=== PATIENT | male | born 1970 | race Caucasian/White ===

== ENCOUNTER 2019-10-18 18:19 | Emergency (ER) | payer OTHER ==
[~2019-10-18] VITALS: Ht 188 cm; Wt 115.0 kg
[2019-10-18] MEDS ORDERED: ONDANSETRON PF 4 MG/2 ML VIAL. ONE (18:47)
[2019-10-18] MEDS ORDERED: MORPHINE SULFATE 4 MG/ML DISP.SYRIN. IV ONE (19:00)
[2019-10-18] MEDS ORDERED: IOHEXOL 300 MG/ML 75 ML VIAL. IV ONE (19:00)
[2019-10-18] MEDS ORDERED: ONDANSETRON PF 4 MG/2 ML VIAL. IVP ONE ×2 (19:00→19:15)
--- NOTE | 2019-10-18 19:06 | PHYS DOC ---
Past History Past Medical History: Asthma, Kidney Stones Past Surgical History: No Surgical History Alcohol Use: None General Adult EDM: Chief Complaint: ABDOMINAL PAIN HPI: HPI: 49-year-old male presents with sudden onset left lower abdominal pain. Patient was feeling fine when he had sudden pain about 3 hours ago. This is similar to when he had a kidney stone in the past. He is nauseated and has moderate level of pain. It is a cramping sensation. He has no other significant medical history. He is not taking any daily medications. He denies vomiting, diarrhea, constipation. Denies fever chills. Review of Systems: Review of Systems: Constitutional: Denies fever or chills Eyes: Denies change in visual acuity HENT: Denies nasal congestion or sore throat Respiratory: Denies cough or shortness of breath Cardiovascular: Denies chest pain or edema GI: Denies abdominal pain, nausea, vomiting, bloody stools or diarrhea : Denies dysuria Musculoskeletal: Denies back pain or joint pain Integument: Denies rash Neurologic: Denies headache, focal weakness or sensory changes Endocrine: Denies polyuria or polydipsia Lymphatic: Denies swollen glands Psychiatric: Denies depression or anxiety Heart Score: Risk Factors: Risk Factors: DM, Current or recent (<one month) smoker, HTN, HLP, family history of CAD, obesity. Risk Scores: Score 0 - 3: 2.5% MACE over next 6 weeks - Discharge Home Score 4 - 6: 20.3% MACE over next 6 weeks - Admit for Clinical Observation Score 7 - 10: 72.7% MACE over next 6 weeks - Early Invasive Strategies Current Medications: Current Meds: Current Medications Medications (Trade) Dose Ordered Sig/Josh Start Time Stop Time Status Last Admin Dose Admin Iohexol (Omnipaque 300 Mg/ml) 75 ml 1X ONCE 10/18/19 19:00 10/18/19 19:01 UNV Ondansetron HCl (Zofran) 4 mg STK-MED ONCE 10/18/19 18:47 10/18/19 18:47 DC Allergies: Allergies: Allergies Coded Allergies Type Severity Reaction Last Updated Verified Penicillins Allergy Unknown 10/18/19 Yes Physical Exam: PE: Constitutional: Well developed, obese, well nourished, no acute distress, non- toxic appearance. [] HENT: Normocephalic, atraumatic, bilateral external ears normal, oropharynx moist, no oral exudates, nose normal. [] Eyes: PERRLA, EOMI, conjunctiva normal, no discharge. [] Neck: Normal range of motion, no tenderness, supple, no stridor. [] Cardiovascular: Heart rate regular rhythm, no murmur [] Lungs & Thorax: Bilateral breath sounds clear to auscultation [] Abdomen: Bowel sounds normal, soft, LLQ tenderness, no masses, no pulsatile masses. [] Skin: Warm, dry, no erythema, no rash. [] Back: No tenderness, left sided CVA tenderness. [] Extremities: No tenderness, no cyanosis, no clubbing, ROM intact, no edema. [] Neurologic: Alert and oriented X 3, normal motor function, normal sensory function, no focal deficits noted. [] Psychologic: Affect normal, judgement normal, mood normal. [] Current Patient Data: Vital Signs: Vital Signs Date Time Temp Pulse Resp B/P (MAP) Pulse Ox O2 Delivery O2 Flow Rate FiO2 10/18/19 18:42 98.3 63 20 148/85 (106) 97 Room Air EKG: EKG: [] Radiology/Procedures: Radiology/Procedures: [] Impressions: Study: CT abdomen/pelvis without intravenous contrast Indication: Left flank pain. History of kidney stones. Comparison: None. Technique: Helical CT imaging performed of the abdomen and pelvis without the use of intravenous contrast. Sagittal and coronal reformats were obtained. One or more of the following individualized dose reduction techniques were utilized for this examination: 1. Automated exposure control 2. Adjustment of the mA and/or kV according to patient size 3. Use of iterative reconstruction technique. Findings: Inherently limited evaluation without intravenous contrast. Unremarkable lower chest. No focal hepatic abnormality. The gallbladder is within normal limits. Unremarkable pancreas, spleen and adrenal glands. No nephrolithiasis or collecting system dilatation on the right. Faint heterogeneous cortical hypoattenuation at the medial/upper right kidney, image 55 series 2 favored a cyst given density in this region of around 4 Hounsfield units. Mild hydronephrosis on the left and perinephric fat stranding in the setting of a prominent nephrolithiasis within the renal pelvis extending towards the ureteropelvic junction measuring up to 1.1 cm on image 69 series 2. Unremarkable bladder. The prostate is within normal limits for size. Unremarkable colon and appendix. Nonobstructed small bowel. Distended stomach with ingested material. Nonaneurysmal aorta. Mild calcific atherosclerosis. No lymphadenopathy. No free fluid or gas. No acute or aggressive osseous process. Scattered enthesophyte formation. A few bone islands such as within the left iliac bone adjacent to the SI joint. L4 inferior endplate Schmorl's node. A few smaller Schmorl's nodes elsewhere. Scattered relatively mild facet degeneration. Impression: Mild hydronephrosis on the left in the setting of a prominent nephrolithiasis within the renal pelvis approaching the ureteropelvic junction that measures up to 1.1 cm. Associated perinephric fat stranding. No nephrolithiasis or collecting system obstruction on the right. Electronically signed by: RADHA VASQUEZ MD (10/18/2019 7:44 PM) [id number] DICTATED AND SIGNED BY: RADHA VASQUEZ MD DATE: 10/18/191943 CC: JOEL SCHWARZ DO; PCP,NO ~ Course & Med Decision Making: Course & Med Decision Making Pertinent Labs and Imaging studies reviewed. (See chart for details) The patient CT scan is significant for a nephrolithiasis greater than 1 cm near the kidney pelvis/ureter junction. There is stranding in the area of the stone. See official report for more details. He has been given 4 mg of morphine and 1 mg of Dilaudid for his pain. He is still pretty uncomfortable. His labs were remarkable for a creatinine of 1.8. We have no previous for comparison. His urinalysis is negative for infection at this time. The patient would prefer that we consult [facility] for urology. He has no urologist at this time and our facility does not have this service. I spoke with Dr. Chavez and he has agreed to be consulted for the patient. I spoke with Dr. Oliver, the hospitalist and she has agreed to transfer the patient to [facility] for pain management and further treatment. He will go by ambulance. [] Beto Disclaimer: Beto Disclaimer: This electronic medical record was generated, in whole or in part, using a voice recognition dictation system. Departure Departure: Impression: Primary Impression: Nephrolithiasis Disposition: XFER SHT-TRM HOSP Condition: STABLE Referrals: PCP,NO (PCP) Justification of Admission: Justification of Admission: Justification of Admission Dx: N/A JOEL SCHWARZ DO Oct 18, 2019 19:06
[2019-10-18] MEDS ORDERED: PROCHLORPERAZINE 10 MG/2 ML VIAL. ONE (19:09)
[2019-10-18] MEDS ORDERED: PROCHLORPERAZINE 10 MG/2 ML VIAL. IV ONE (19:15)
[2019-10-18] MEDS ORDERED: IV NORMAL SALINE 1,000ML 1,000 ML IV ONE ×2 (19:15→20:30)
[2019-10-18 19:16] LABS: BASO # 0.1 x10^3/uL (0.0-0.2); BASO % 1 % (0-3); EOS # 0.1 x10^3/uL (0.0-0.7); EOS % 1 % (0-3); HEMATOCRIT 46.9 % (39.0-53.0); HEMOGLOBIN 15.9 g/dL (13.0-17.5); LYMPH # 1.4 x10^3/uL (1.0-4.8); LYMPH % 21 % (24-48); MEAN CORPUSCULAR HEMOGLOBIN 31 pg (25-35); MEAN CORPUSCULAR HGB CONC 34 g/dL (31-37); MEAN CORPUSCULAR VOLUME 93 fL (79-100); MONO # 0.6 x10^3/uL (0.0-1.1); MONO % 9 % (0-9); NEUT # 4.7 x10^3uL (1.8-7.7); NEUT % 69 % (31-73); PLATELET COUNT 179 x10^3/uL (140-400); RED BLOOD COUNT 5.06 x10^6/uL (4.30-5.70); RED CELL DISTRIBUTION WIDTH 13.5 % (11.5-14.5); WHITE BLOOD COUNT 6.9 x10^3/uL (4.0-11.0)
[2019-10-18 19:23] LABS: CALCIUM 9.2 mg/dL (8.5-10.1); CREATININE 1.8 mg/dL (0.7-1.3); GFR 40.3; POTASSIUM 4.7 mmol/L (3.5-5.1)
[2019-10-18 19:29] LABS: ALBUMIN/GLOBULIN RATIO 1.1 (1.0-1.7); TOTAL BILIRUBIN 0.7 mg/dL (0.2-1.0); TOTAL PROTEIN 7.7 g/dL (6.4-8.2)
--- NOTE | 2019-10-18 19:47 | RAD ---
Study: CT abdomen/pelvis without intravenous contrast Indication: Left flank pain. History of kidney stones. Comparison: None. Technique: Helical CT imaging performed of the abdomen and pelvis without the use of intravenous contrast. Sagittal and coronal reformats were obtained. One or more of the following individualized dose reduction techniques were utilized for this examination: 1. Automated exposure control 2. Adjustment of the mA and/or kV according to patient size 3. Use of iterative reconstruction technique. Findings: Inherently limited evaluation without intravenous contrast. Unremarkable lower chest. No focal hepatic abnormality. The gallbladder is within normal limits. Unremarkable pancreas, spleen and adrenal glands. No nephrolithiasis or collecting system dilatation on the right. Faint heterogeneous cortical hypoattenuation at the medial/upper right kidney, image 55 series 2 favored a cyst given density in this region of around 4 Hounsfield units. Mild hydronephrosis on the left and perinephric fat stranding in the setting of a prominent nephrolithiasis within the renal pelvis extending towards the ureteropelvic junction measuring up to 1.1 cm on image 69 series 2. Unremarkable bladder. The prostate is within normal limits for size. Unremarkable colon and appendix. Nonobstructed small bowel. Distended stomach with ingested material. Nonaneurysmal aorta. Mild calcific atherosclerosis. No lymphadenopathy. No free fluid or gas. No acute or aggressive osseous process. Scattered enthesophyte formation. A few bone islands such as within the left iliac bone adjacent to the SI joint. L4 inferior endplate Schmorl's node. A few smaller Schmorl's nodes elsewhere. Scattered relatively mild facet degeneration. Impression: Mild hydronephrosis on the left in the setting of a prominent nephrolithiasis within the renal pelvis approaching the ureteropelvic junction that measures up to 1.1 cm. Associated perinephric fat stranding. No nephrolithiasis or collecting system obstruction on the right. Electronically signed by: RADHA VASQUEZ MD (10/18/2019 7:44 PM) [id number]
[2019-10-18] MEDS ORDERED: HYDROmorphone PF 1 MG/ML DISP.SYRIN IV ONE ×2 (21:00→22:15)
[2019-10-18 21:31] LABS: BACTERIA,URINE 0 /HPF (0-FEW); BILIRUBIN,URINE NEG (NEG); CLARITY,URINE HAZY; COLOR,URINE YELLOW; GLUCOSE,URINE NEG (NEG); NITRITE,URINE NEG (NEG); SQUAMOUS EPITHELIAL CELL,UR FEW /LPF; UROBILINOGEN,URINE 0.2 mg/dL (0.2 mg/dL)
[2019-10-18 22:10] VITALS: BP 144/83
== END 2019-10-19 02:25 | disposition short-term general hospital (02) ==
LOC: ER 18:19
DX: N13.2 Hydronephrosis with renal and ureteral calculous obstruction (principal); J45.909 Unspecified asthma, uncomplicated; Z87.442 Personal history of urinary calculi; Z88.0 Allergy status to penicillin
CPT/HCPCS: 36415; 74176; 80053; 81001; 83690; 85025; 96374; 96375; 96376; 99285; J0780; J1170; J2270; J2405; J7030